=== PATIENT | male | born 1945 | race Caucasian/White ===

== ENCOUNTER 2016-10-17 09:16 | Emergency (ER) | payer OTHER ==
[2016-10-17 10:59] VITALS: RESP 16; TEMP 97.6
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
== END 2016-10-17 10:27 | disposition home or self-care (01) ==
LOC: ER 09:16
DX: S80.811A Abrasion, right lower leg, initial encounter (principal); S80.11XA Contusion of right lower leg, initial encounter; V95.01XA Helicopter crash injuring occupant, initial encounter
CPT/HCPCS: 99282